=== PATIENT | female | born 1970 | race Caucasian/White ===

== ENCOUNTER 2017-02-14 09:22 | Emergency (ER) | payer BC ==
[~2017-02-14] VITALS: Ht 165.1 cm; Wt 82.5 kg
[~2017-02-14 09:22] MED LIST: ACIDOPHILUS1 EAC4 PO; CARAFATE100 MG/ML PO; EPIPEN ADU0.3 MG/0.3 IM; FIORICET 50-301 EACH PO; Halfprin PO; LIPITOR10 MG PO; Lipitor PO; NAPROSYN500 MG PO; NICODERM CQ1 EAC2 TD; Nitrostat,NitroQuick SL; OMEPRAZOLE20 M2 PO; PEPCID COMPLET1 EACH PO; PEPCID40 MG PO; PRAVASTATIN SOD40 MG PO; PREDNISONE20 MG PO; SUSTENEX; ZOFRAN ODT4 MG PO
[2017-02-14 12:53] LABS: EOSINOPHIL (%) 0.8 % (0-5); EOSINOPHIL COUNT 0.1 K/uL (0-0.3); HEMATOCRIT 49.7 % (36.0-46.0); IMMATURE GRANULOCYTE (%) 0.3 % (0.0-0.7); INSTRUMENT ABS NEUTROPHIL CT 5.1 K/uL; LYMPHOCYTE COUNT 1.7 K/uL (1.0-2.8); MCH 31.1 PG (29.0-34.0); MCHC 33.2 G/DL (30.0-36.0); MCV 93.6 FL (83-99); MEAN PLAT.VOLUME 10.2 uM^3 (9.5-12.4); MONOCYTE (%) 4.7 % (3-12); MONOCYTE COUNT 0.3 K/uL (0-0.8); NEUTROPHIL (%) 69.9 % (45-76); NEUTROPHIL COUNT 5.1 K/uL (1.8-6.4); PLATELET COUNT 234 K/uL (156-360); RBC DIS.WIDTH-CV 12.6 % (11.8-14.6); RBC DIS.WIDTH-SD 43.4 % (39-53); RED BLOOD COUNT 5.31 M/uL (3.80-5.20); WHITE BLOOD COUNT 7.3 K/uL (4.1-10.2)
[2017-02-14 13:05] LABS: CHLORIDE 107 mEq/L (99-109); POTASSIUM 4.5 mEq/L (3.7-5.4); SODIUM 143 mEq/L (136-147)
[2017-02-14 13:07] LABS: GLUCOSE 86 mg/dL (70-99)
[2017-02-14 13:08] LABS: ANION GAP 8 MEQ/L (2-14)
[2017-02-14 13:11] LABS: GFR ESTIMATE (CALCULATED) > 59 mL/min/
[2017-02-14 13:12] LABS: UREA NITROGEN (BUN) 10 mg/dL (9-23)
[2017-02-14 13:24] LABS: ADD MIUA? NO; BILIRUBIN NEGATIVE; BLOOD NEGATIVE; COLOR STRAW ((YELLOW)); GLUCOSE (STRIP) NEGATIVE; KETONES NEGATIVE; LEUKOCYTES NEGATIVE; NITRITE NEGATIVE; PROTEIN (STRIP) NEGATIVE; SPECIFIC GRAVITY 1.011 (1.000-1.030); UCUL ADDED? NO; UROBILINOGEN 0.2 MG/DL (0.2-1.0)
[2017-02-14 15:18] VITALS: BP 126/59
== END 2017-02-14 15:19 | disposition home or self-care (01) ==
LOC: EXP 09:22 → EME 09:22 → EXP 15:19
PROVIDERS: Nurse Practitioner Family
DX: M54.2 Cervicalgia (principal); G89.29 Other chronic pain; R53.83 Other fatigue; F41.9 Anxiety disorder, unspecified; R68.89 Other general symptoms and signs; K21.9 Gastro-esophageal reflux disease without esophagitis; I25.10 Atherosclerotic heart disease of native coronary artery without angina pectoris; F17.200 Nicotine dependence, unspecified, uncomplicated
CPT/HCPCS: 70360; 80048; 81003; 85025; 93005; 99281; 99284

== ENCOUNTER 2017-03-12 09:24 | Emergency (ER) | payer BC ==
[~2017-03-12] VITALS: Ht 165.1 cm; Wt 84.4 kg
[2017-03-12] MEDS ORDERED: ZOLOFT50 MG PO (12:21)
[2017-03-12] MEDS ORDERED: FLEXERIL10 MG PO (14:35)
[2017-03-12 14:41] VITALS: BP 114/61
== END 2017-03-12 14:43 | disposition home or self-care (01) ==
LOC: EME 09:24
DX: S16.1XXA Strain of muscle, fascia and tendon at neck level, initial encounter (principal); R51 Headache; Z88.6 Allergy status to analgesic agent; Z88.2 Allergy status to sulfonamides; F17.200 Nicotine dependence, unspecified, uncomplicated
CPT/HCPCS: 70470; 99281; 99284; J1100

== ENCOUNTER 2018-03-10 11:39 | Emergency (ER) | payer OTHER ==
[~2018-03-10] VITALS: Ht 162.6 cm; Wt 104.4 kg
[~2018-03-10 11:39] MED LIST changes: +FLEXERIL10 MG PO; +ZOLOFT50 MG PO
[2018-03-10 12:17] LABS: HEMATOCRIT 47.1 % (36.0-46.0); HEMOGLOBIN 16.2 G/DL (11.9-15.5); MCH 31.1 PG (29.0-34.0); MCHC 34.4 G/DL (30.0-36.0); MCV 90.4 FL (83-99); PLATELET COUNT 279 K/uL (156-360); RBC DIS.WIDTH-CV 11.7 % (11.8-14.6); RBC DIS.WIDTH-SD 38.5 % (39-53); RED BLOOD COUNT 5.21 M/uL (3.80-5.20); WHITE BLOOD COUNT 5.8 K/uL (4.1-10.2)
[2018-03-10 12:29] LABS: ALBUMIN 4.2 g/dL (3.2-4.8); CHLORIDE 107 mEq/L (99-109); POTASSIUM 4.6 mEq/L (3.7-5.4); SODIUM 144 mEq/L (136-147)
[2018-03-10 12:31] LABS: GLUCOSE 90 mg/dL (70-99); TOTAL PROTEIN 7.2 g/dL (6.4-8.3)
[2018-03-10 12:33] LABS: TOTAL BILIRUBIN 0.7 mg/dL (0.0-1.0)
[2018-03-10 12:34] LABS: ALKALINE PHOSPHATASE 107 IU/L (3-129)
[2018-03-10 12:35] LABS: CREATININE 0.8 mg/dL (0.6-1.3); GFR ESTIMATE (CALCULATED) > 59 mL/min/
[2018-03-10 12:36] LABS: AST (GOT) 60 IU/L (2-34); UREA NITROGEN (BUN) 12 mg/dL (9-23)
[2018-03-10 12:37] LABS: QUANTITATIVE HCG < 4.0 MIU/ML
[2018-03-10 12:38] LABS: ALT (GPT) 105 IU/L (3-49)
[2018-03-10 12:53] LABS: APPEARANCE CLEAR ((CLEAR)); BILIRUBIN NEGATIVE; BLOOD NEGATIVE; COLOR YELLOW ((YELLOW)); GLUCOSE (STRIP) NEGATIVE; KETONES NEGATIVE; LEUKOCYTES NEGATIVE; NITRITE NEGATIVE; PROTEIN (STRIP) NEGATIVE; SPECIFIC GRAVITY 1.013 (1.000-1.030); UCUL ADDED? NO; UROBILINOGEN 0.2 MG/DL (0.2-1.0)
[2018-03-10] MEDS ORDERED: OMEPRAZOLE20 MG PO (13:36)
[2018-03-10 14:17] LABS: LIPASE 20 U/L (1.0-51.0)
[2018-03-10] MEDS ORDERED: BENTYL10 MG PO (16:18)
[2018-03-10] MEDS ORDERED: ZOFRAN ODT4 MG PO (16:18)
[2018-03-10 16:32] VITALS: BP 119/72
== END 2018-03-10 16:33 | disposition home or self-care (01) ==
LOC: EME 11:39
DX: R10.11 Right upper quadrant pain (principal); K21.9 Gastro-esophageal reflux disease without esophagitis; K58.9 Irritable bowel syndrome, unspecified; I25.10 Atherosclerotic heart disease of native coronary artery without angina pectoris; Z87.891 Personal history of nicotine dependence; Z88.2 Allergy status to sulfonamides; Z88.5 Allergy status to narcotic agent; Z88.8 Allergy status to other drugs, medicaments and biological substances; Z88.1 Allergy status to other antibiotic agents
CPT/HCPCS: 76705; 80053; 81003; 83690; 84702; 85027; 93005; 99281; 99284; J1885

== ENCOUNTER 2018-03-13 08:08 | Emergency (ER) | payer OTHER ==
[~2018-03-13] VITALS: Ht 165.1 cm; Wt 105.1 kg
[~2018-03-13 08:08] MED LIST changes: +BENTYL10 MG PO; +OMEPRAZOLE20 MG PO
[2018-03-13 08:36] LABS: HEMOGLOBIN 15.4 G/DL (11.9-15.5); MCH 31.5 PG (29.0-34.0); PLATELET COUNT 254 K/uL (156-360); RBC DIS.WIDTH-CV 11.7 % (11.8-14.6); RBC DIS.WIDTH-SD 38.3 % (39-53); RED BLOOD COUNT 4.89 M/uL (3.80-5.20); WHITE BLOOD COUNT 6.6 K/uL (4.1-10.2)
[2018-03-13 08:43] LABS: ALBUMIN 4.1 g/dL (3.2-4.8); CHLORIDE 104 mEq/L (99-109)
[2018-03-13 08:44] LABS: SODIUM 140 mEq/L (136-147)
[2018-03-13 08:46] LABS: GLUCOSE 99 mg/dL (70-99); TOTAL PROTEIN 6.9 g/dL (6.4-8.3)
[2018-03-13 08:48] LABS: TOTAL BILIRUBIN 0.6 mg/dL (0.0-1.0)
[2018-03-13 08:49] LABS: ALKALINE PHOSPHATASE 98 IU/L (3-129); CREATININE 0.8 mg/dL (0.6-1.3); GFR ESTIMATE (CALCULATED) > 59 mL/min/
[2018-03-13 08:51] LABS: AST (GOT) 35 IU/L (2-34); UREA NITROGEN (BUN) 13 mg/dL (9-23)
[2018-03-13 08:52] LABS: ALT (GPT) 71 IU/L (3-49)
[2018-03-13 08:53] LABS: LIPASE 21 U/L (1.0-51.0)
[2018-03-13 08:56] LABS: TROP-I INTERPRETATION NEGATIVE; TROPONIN-I < 0.01 ng/mL (0.0-0.30)
[2018-03-13] MEDS ORDERED: ZOFRAN ODT4 MG PO (10:33)
[2018-03-13] MEDS ORDERED: BENTYL10 MG PO (10:33)
[2018-03-13 10:55] VITALS: BP 132/75
== END 2018-03-13 10:56 | disposition home or self-care (01) ==
LOC: EME 08:08
PROVIDERS: Nurse Practitioner Family
DX: R10.13 Epigastric pain (principal); M94.0 Chondrocostal junction syndrome [Tietze]; R11.0 Nausea; R42 Dizziness and giddiness; K76.0 Fatty (change of) liver, not elsewhere classified; Z87.891 Personal history of nicotine dependence
CPT/HCPCS: 71046; 74177; 80053; 83690; 84484; 85027; 99281; 99285; J2405; J3010; J7030

== ENCOUNTER 2018-04-11 18:49 | Observation (INO) | payer OTHER ==
[~2018-04-11] VITALS: Ht 165.1 cm; Wt 108.7 kg
[~2018-04-11 18:49] MED LIST changes: -OMEPRAZOLE20 MG PO; +OMEPRAZOLE40 M1 PO
[2018-04-11 20:30] LABS: HEMOGLOBIN 15.2 G/DL (11.9-15.5); MCH 31.1 PG (29.0-34.0); MCHC 34.5 G/DL (30.0-36.0); PLATELET COUNT 250 K/uL (156-360); RBC DIS.WIDTH-CV 11.7 % (11.8-14.6); RBC DIS.WIDTH-SD 38.2 % (39-53); RED BLOOD COUNT 4.89 M/uL (3.80-5.20)
[2018-04-11 20:41] LABS: CHLORIDE 106 mEq/L (99-109); POTASSIUM 3.9 mEq/L (3.7-5.4); SODIUM 142 mEq/L (136-147)
[2018-04-11 20:43] LABS: GLUCOSE 92 mg/dL (70-99)
[2018-04-11 20:46] LABS: CREATININE 0.8 mg/dL (0.6-1.3); GFR ESTIMATE (CALCULATED) > 59 mL/min/
[2018-04-11 20:47] LABS: UREA NITROGEN (BUN) 18 mg/dL (9-23)
[2018-04-11 20:54] LABS: QUANTITATIVE HCG < 4.0 MIU/ML
[2018-04-11] MEDS ORDERED: CARAFATE1 GM PO (22:43)
[2018-04-11] MEDS ORDERED: CYANOCOBAL1000 MCG/2 IM (22:44)
[2018-04-11] MEDS ORDERED: ADVIL,NUPRIN,M200 MG PO (22:44)
[2018-04-12 00:51] VITALS: BP 137/82
[2018-04-12 07:40] VITALS: BP 105/59
[2018-04-12 11:31] VITALS: BP 116/57
[2018-04-12] MEDS ORDERED: TYLENOL ARTHRI650 MG PO (14:50)
[2018-04-12 16:20] VITALS: BP 100/60
[2018-04-12] MEDS ORDERED: ELAVIL10 MG PO (18:16)
== END 2018-04-12 19:08 | disposition home or self-care (01) ==
LOC: EME 18:49 → EXP 18:49 → EDOF 23:39 → ENRESERV 23:58 → 4SOUTH 04-12 00:48
PROVIDERS: Physician Assistant Medical
DX: R20.2 Paresthesia of skin (principal); G89.29 Other chronic pain; M54.2 Cervicalgia; R42 Dizziness and giddiness; M48.02 Spinal stenosis, cervical region; M50.222 Other cervical disc displacement at C5-C6 level; G43.909 Migraine, unspecified, not intractable, without status migrainosus; M79.602 Pain in left arm; K44.9 Diaphragmatic hernia without obstruction or gangrene; K21.9 Gastro-esophageal reflux disease without esophagitis; Z87.11 Personal history of peptic ulcer disease; Z82.49 Family history of ischemic heart disease and other diseases of the circulatory system; Z82.3 Family history of stroke; F17.200 Nicotine dependence, unspecified, uncomplicated; Z88.5 Allergy status to narcotic agent; Z88.8 Allergy status to other drugs, medicaments and biological substances
CPT/HCPCS: 70450; 70551; 72141; 80048; 84702; 85027; 93005; 99281; 99285; G0378; J1200; J1885; J2765; J2930; J7030

== ENCOUNTER 2018-04-22 18:45 | Emergency (ER) | payer OTHER ==
[~2018-04-22] VITALS: Ht 165.1 cm; Wt 104.6 kg
[~2018-04-22 18:45] MED LIST changes: +ADVIL,NUPRIN,M200 MG PO; +CARAFATE1 GM PO; +CYANOCOBAL1000 MCG/2 IM; +ELAVIL10 MG PO; +TYLENOL ARTHRI650 MG PO
[2018-04-22 19:18] LABS: HEMATOCRIT 44.9 % (36.0-46.0); HEMOGLOBIN 15.6 G/DL (11.9-15.5); MCH 31.1 PG (29.0-34.0); MCHC 34.7 G/DL (30.0-36.0); MCV 89.6 FL (83-99); PLATELET COUNT 246 K/uL (156-360); RBC DIS.WIDTH-CV 11.7 % (11.8-14.6); RBC DIS.WIDTH-SD 37.9 % (39-53); RED BLOOD COUNT 5.01 M/uL (3.80-5.20); WHITE BLOOD COUNT 6.4 K/uL (4.1-10.2)
[2018-04-22 19:32] LABS: CHLORIDE 103 mEq/L (99-109); POTASSIUM 3.9 mEq/L (3.7-5.4); SODIUM 141 mEq/L (136-147)
[2018-04-22 19:34] LABS: GLUCOSE 93 mg/dL (70-99)
[2018-04-22 19:37] LABS: CREATININE 0.9 mg/dL (0.6-1.3); GFR ESTIMATE (CALCULATED) > 59 mL/min/
[2018-04-22 19:38] LABS: UREA NITROGEN (BUN) 11 mg/dL (9-23)
[2018-04-22 19:45] LABS: TROP-I INTERPRETATION NEGATIVE; TROPONIN-I < 0.01 ng/mL (0.0-0.30)
[2018-04-22 19:54] LABS: ALBUMIN 4.3 g/dL (3.2-4.8)
[2018-04-22 19:57] LABS: TOTAL PROTEIN 7.1 g/dL (6.4-8.3)
[2018-04-22 19:58] LABS: TOTAL BILIRUBIN 0.8 mg/dL (0.0-1.0)
[2018-04-22 19:59] LABS: ALKALINE PHOSPHATASE 100 IU/L (3-129)
[2018-04-22 20:02] LABS: AST (GOT) 41 IU/L (2-34); DIRECT BILIRUBIN 0.3 mg/dL (0.0-0.3)
[2018-04-22 20:03] LABS: ALT (GPT) 79 IU/L (3-49); LIPASE 19 U/L (1.0-51.0)
[2018-04-22 22:35] VITALS: BP 131/67
== END 2018-04-22 22:36 | disposition home or self-care (01) ==
LOC: EME 18:45
DX: R10.13 Epigastric pain (principal); R07.9 Chest pain, unspecified; K21.9 Gastro-esophageal reflux disease without esophagitis; I25.10 Atherosclerotic heart disease of native coronary artery without angina pectoris; K58.9 Irritable bowel syndrome, unspecified; Z87.19 Personal history of other diseases of the digestive system; Z88.2 Allergy status to sulfonamides; Z88.5 Allergy status to narcotic agent; Z87.891 Personal history of nicotine dependence
CPT/HCPCS: 71046; 74019; 80048; 80076; 83690; 84484; 85027; 93005; 99281; 99283

== ENCOUNTER → 2018-05-05 | Outpatient (CLI) | payer OTHER | END | disposition home or self-care (01) | LOC: NUC 10:09 | DX: R10.13 Epigastric pain (principal); R74.0 Nonspecific elevation of levels of transaminase and lactic acid dehydrogenase [LDH] | CPT/HCPCS: 78227; A9537; J2805 ==

== ENCOUNTER 2018-06-10 09:10 | Day surgery (SDC) | payer OTHER ==
[~2018-06-10] VITALS: Ht 165.1 cm; Wt 99.0 kg
[~2018-06-10 09:10] MED LIST changes: +DEXILANT60 MG PO
[2018-06-10 09:27] VITALS: BP 125/64
[2018-06-10] MEDS ORDERED: DILAUDID2 MG PO (13:51)
[2018-06-10] MEDS ORDERED: COLACE100 MG PO (13:51)
[2018-06-10 14:03] VITALS: BP 112/57
[2018-06-10 15:25] VITALS: BP 106/56
== END 2018-06-10 16:09 | disposition home or self-care (01) ==
LOC: SDC 09:10
PROC: 0FN44ZZ Release Gallbladder, Percutaneous Endoscopic Approach (ICD-10-PCS; principal; 2018-06-10)
PROC: 0FB13ZX Excision of Right Lobe Liver, Percutaneous Approach, Diagnostic (ICD-10-PCS; principal; 2018-06-10)
PROC: 0FT44ZZ Resection of Gallbladder, Percutaneous Endoscopic Approach (ICD-10-PCS; principal; 2018-06-10)
DX: K81.1 Chronic cholecystitis (principal); K82.8 Other specified diseases of gallbladder; K76.0 Fatty (change of) liver, not elsewhere classified; R74.0 Nonspecific elevation of levels of transaminase and lactic acid dehydrogenase [LDH]; K66.0 Peritoneal adhesions (postprocedural) (postinfection); Z68.38 Body mass index [BMI] 38.0-38.9, adult; K21.9 Gastro-esophageal reflux disease without esophagitis; K58.9 Irritable bowel syndrome, unspecified; Z82.3 Family history of stroke; Z82.49 Family history of ischemic heart disease and other diseases of the circulatory system; Z87.891 Personal history of nicotine dependence; Z88.1 Allergy status to other antibiotic agents; Z88.2 Allergy status to sulfonamides; Z88.5 Allergy status to narcotic agent; Z88.8 Allergy status to other drugs, medicaments and biological substances
CPT/HCPCS: 88304; 88307; 88313; J0131; J1100; J1170; J2250; J2405; J2765; J3010; J7120; Q0175; S0074